=== PATIENT | female | born 1990 | race Hispanic/Latino ===

== ENCOUNTER 2018-03-07 22:36 | Emergency (ER) | payer BC ==
[~2018-03-07] VITALS: Ht 162.6 cm; Wt 60.3 kg
== END 2018-03-08 | disposition home or self-care (01) ==
LOC: FSED 22:36
DX: R13.10 Dysphagia, unspecified (principal); R07.0 Pain in throat
CPT/HCPCS: 70490; 99283

== ENCOUNTER 2023-04-25 22:42 | Emergency (ER) | payer BC, OTHER ==
[~2023-04-25] VITALS: Ht 162.6 cm; Wt 60.3 kg
[2023-04-25 23:06] VITALS: O2SAT 98
[2023-04-25] MEDS ORDERED: CYCLOBENZAPRINE HCL 10 MG TAB ONE (23:12)
[2023-04-25] MEDS ORDERED: IBUPROFEN 400 MG TAB ONE (23:12)
[2023-04-25] MEDS ORDERED: IBUPROFEN 400 MG TAB PO ONE (23:15)
[2023-04-25] MEDS ORDERED: CYCLOBENZAPRINE HCL 10 MG TAB PO ONE (23:15)
[2023-04-25] MEDS ORDERED: CYCLOBENZAPRINE5 MG PO (23:16)
== END 2023-04-25 23:29 | disposition home or self-care (01) ==
LOC: FSED 22:47
DX: M54.50 Low back pain, unspecified (principal); R20.0 Anesthesia of skin
CPT/HCPCS: 99282